=== PATIENT | female | born 1995 | race Asian ===

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

== ENCOUNTER 2017-10-04 22:35 | Emergency (ER) | payer OTHER ==
[~2017-10-04] VITALS: Ht 182.9 cm; Wt 145.2 kg
== END 2017-10-04 23:17 | disposition home or self-care (01) ==
LOC: ED 22:35
DX: K12.1 Other forms of stomatitis (principal)
CPT/HCPCS: 99281

== ENCOUNTER 2018-02-08 14:02 | Emergency (ER) | payer OTHER ==
[~2018-02-08] VITALS: Ht 172.7 cm; Wt 124.7 kg
[2018-02-08 14:10] VITALS: BP 149/93; TEMP 97.3
== END 2018-02-08 15:00 | disposition home or self-care (01) ==
LOC: ED 14:02
DX: N39.0 Urinary tract infection, site not specified (principal)
CPT/HCPCS: 81000; 81025; 87086; 87088; 99282

== ENCOUNTER 2018-04-12 12:50 | Emergency (ER) | payer OTHER ==
[~2018-04-12] VITALS: Ht 170.2 cm; Wt 145.2 kg
[2018-04-12 12:56] VITALS: BP 138/90; TEMP 97.9
== END 2018-04-12 14:22 | disposition home or self-care (01) ==
LOC: ED 12:50
DX: N39.0 Urinary tract infection, site not specified (principal)
CPT/HCPCS: 81000; 99282

== ENCOUNTER 2018-05-04 00:48 | Emergency (ER) | payer OTHER ==
[~2018-05-04] VITALS: Ht 170.2 cm; Wt 145.2 kg
[2018-05-04 01:37] LABS: PLATELET COUNT 297 K/uL (152-353)
[2018-05-04 01:53] LABS: POTASSIUM 3.9 mmol/L (3.6-5.2)
[2018-05-04 03:21] VITALS: BP 120/72; TEMP 98.7
== END 2018-05-04 03:21 | disposition home or self-care (01) ==
LOC: ED 00:48
PROVIDERS: Family Medicine
DX: R10.9 Unspecified abdominal pain (principal); S39.011A Strain of muscle, fascia and tendon of abdomen, initial encounter
CPT/HCPCS: 74022; 80053; 81025; 82150; 83690; 85027; 96372; 99283; J1885

== ENCOUNTER 2020-05-12 17:46 | Emergency (ER) | payer OTHER ==
[~2020-05-12] VITALS: Ht 170.2 cm; Wt 127.0 kg
[2020-05-12 22:15] LABS: PLATELET COUNT 241 K/uL (152-353)
[2020-05-12 22:23] LABS: POTASSIUM 3.5 mmol/L (3.6-5.2)
[2020-05-12 23:49] VITALS: BP 140/57; TEMP 97
== END 2020-05-12 23:50 | disposition home or self-care (01) ==
LOC: ED 17:46
PROVIDERS: Family Medicine
DX: U07.1 COVID-19 (principal); R05 Cough
CPT/HCPCS: 36415; 80053; 85007; 85027; 87502; 87635; 87651; 99283; U0003

== ENCOUNTER 2021-02-14 22:32 | Emergency (ER) | payer BC ==
[~2021-02-14] VITALS: Ht 180.3 cm; Wt 163.3 kg
[2021-02-15 00:03] VITALS: BP 143/94; TEMP 98.1
== END 2021-02-15 00:03 | disposition home or self-care (01) ==
LOC: ED 22:32
DX: S16.1XXA Strain of muscle, fascia and tendon at neck level, initial encounter (principal); S39.012A Strain of muscle, fascia and tendon of lower back, initial encounter; V49.40XA Driver injured in collision with unspecified motor vehicles in traffic accident, initial encounter; Y92.89 Other specified places as the place of occurrence of the external cause
CPT/HCPCS: 81025; 96372; 99283; J1885

== ENCOUNTER 2021-03-13 09:03 | Emergency (ER) | payer BC ==
[~2021-03-13] VITALS: Ht 182.9 cm; Wt 122.5 kg
[2021-03-13 10:07] VITALS: BP 135/80; TEMP 98
== END 2021-03-13 10:13 | disposition home or self-care (01) ==
LOC: ED 09:03
DX: J06.9 Acute upper respiratory infection, unspecified (principal); J02.9 Acute pharyngitis, unspecified; F17.210 Nicotine dependence, cigarettes, uncomplicated; Z20.822 Contact with and (suspected) exposure to COVID-19
CPT/HCPCS: 87635; 87651; 96372; 99283; J0696; U0003

== ENCOUNTER 2021-11-06 14:56 | Emergency (ER) | payer BC ==
[~2021-11-06] VITALS: Ht 182.9 cm; Wt 122.5 kg
[2021-11-06 15:09] VITALS: TEMP 97.9
[2021-11-06 17:15] LABS: PLATELET COUNT 222 K/uL (152-353)
[2021-11-06] MEDS ORDERED: LEVOFLOXACIN500 MG PO (22:11)
[2021-11-06 22:27] VITALS: BP 127/63
== END 2021-11-06 22:27 | disposition home or self-care (01) ==
LOC: ED 14:56
PROVIDERS: Emergency Medicine
DX: N39.0 Urinary tract infection, site not specified (principal)
CPT/HCPCS: 80053; 81002; 81015; 81025; 83690; 85027; 87077; 87086; 87088; 87186; 96360; 96374; 96375; 99283; J1885; J2405; Q9963

== ENCOUNTER 2022-01-30 14:57 | Emergency (ER) | payer OTHER ==
[~2022-01-30] VITALS: Ht 177.8 cm; Wt 151.0 kg
[~2022-01-30 14:57] MED LIST: LEVOFLOXACIN500 MG PO
[2022-01-30 15:02] VITALS: TEMP 98.4
[2022-01-30 15:53] LABS: PLATELET COUNT 184 K/uL (152-353)
[2022-01-30 15:58] LABS: POTASSIUM 3.3 mmol/L (3.6-5.2)
[2022-01-30 18:09] VITALS: BP 135/72
== END 2022-01-30 18:10 | disposition home or self-care (01) ==
LOC: ED 14:57
PROVIDERS: Emergency Medicine Emergency Medical Services
DX: E86.0 Dehydration (principal); R11.2 Nausea with vomiting, unspecified; Z98.84 Bariatric surgery status
CPT/HCPCS: 80053; 81000; 81025; 82150; 83690; 85027; 96360; 96361; 96374; 99284; J2405; J3490

== ENCOUNTER 2022-02-12 08:57 | Emergency (ER) | payer OTHER ==
[~2022-02-12] VITALS: Ht 177.8 cm; Wt 147.4 kg
[2022-02-12 09:09] VITALS: TEMP 97
[2022-02-12 09:56] LABS: PLATELET COUNT 175 K/uL (152-353)
[2022-02-12 10:03] LABS: POTASSIUM 3.6 mmol/L (3.6-5.2)
[2022-02-12 12:30] VITALS: BP 122/82
[2022-02-12] MEDS ORDERED: ONDA4TAB3 PO (12:40)
[2022-02-12] MEDS ORDERED: CIPRO500 MG PO (12:40)
== END 2022-02-12 12:49 | disposition home or self-care (01) ==
LOC: ED 08:57
PROVIDERS: Emergency Medicine
DX: R11.2 Nausea with vomiting, unspecified (principal); Z98.84 Bariatric surgery status; N39.0 Urinary tract infection, site not specified; A59.00 Urogenital trichomoniasis, unspecified
CPT/HCPCS: 80053; 81000; 81025; 82150; 83690; 85027; 87086; 87088; 99283

== ENCOUNTER 2022-02-22 11:03 | Emergency (ER) | payer OTHER ==
[~2022-02-22] VITALS: Ht 180.3 cm; Wt 143.8 kg
[~2022-02-22 11:03] MED LIST changes: +CIPRO500 MG PO; +ONDA4TAB3 PO
[2022-02-22 11:56] LABS: PLATELET COUNT 220 K/uL (152-353)
[2022-02-22 14:00] VITALS: BP 134/71; TEMP 98.4
== END 2022-02-22 14:00 | disposition home or self-care (01) ==
LOC: ED 11:03
PROVIDERS: Emergency Medicine
DX: E86.0 Dehydration (principal); E87.6 Hypokalemia; Z98.84 Bariatric surgery status
CPT/HCPCS: 36415; 80053; 85027; 93005; 96360; 99284

== ENCOUNTER 2022-03-03 22:13 | Emergency (ER) | payer OTHER ==
[~2022-03-03] VITALS: Ht 180.3 cm; Wt 138.8 kg
[2022-03-03 22:53] LABS: PLATELET COUNT 274 K/uL (152-353)
[2022-03-03 23:16] LABS: POTASSIUM 3.2 mmol/L (3.6-5.2)
[2022-03-04 01:29] VITALS: BP 134/98; TEMP 98.3
== END 2022-03-04 01:29 | disposition home or self-care (01) ==
LOC: ED 22:13
PROVIDERS: Family Medicine
DX: E86.0 Dehydration (principal); R42 Dizziness and giddiness; E66.01 Morbid (severe) obesity due to excess calories; E87.6 Hypokalemia; Z98.84 Bariatric surgery status
CPT/HCPCS: 36415; 80053; 81000; 85027; 96360; 96361; 99284

== ENCOUNTER 2022-03-10 11:20 | Observation (INO) | payer OTHER ==
[~2022-03-10] VITALS: Ht 180.3 cm; Wt 141.6 kg
[2022-03-10] VITALS (14 sets, daily range): BP systolic 133–209; BP diastolic 87–140; TEMP 97.6–99.5; Ht 180.3 cm; Wt 141.6 kg
[2022-03-10 12:04] LABS: PLATELET COUNT 282 K/uL (152-353)
[2022-03-10 12:14] LABS: POTASSIUM 3.6 mmol/L (3.6-5.2)
[2022-03-10] MEDS ORDERED: ONDA4TAB3 PO (19:42)
[2022-03-10] MEDS ORDERED: POTASSIUM CHLO10 MEQ PO (19:42)
[2022-03-11] VITALS (9 sets, daily range): BP systolic 149–177; BP diastolic 70–117; TEMP 98.4–99.3
[2022-03-11 05:11] LABS: PLATELET COUNT 206 K/uL (152-353)
[2022-03-11 05:32] LABS: POTASSIUM 3.9 mmol/L (3.6-5.2)
[2022-03-12 04:00] VITALS: BP 147/96; TEMP 98.9
[2022-03-12 08:00] VITALS: BP 146/88; TEMP 98.5
[2022-03-12 10:21] LABS: POTASSIUM 3.6 mmol/L (3.6-5.2)
[2022-03-12 12:00] VITALS: BP 149/95; TEMP 98.6
[2022-03-12] MEDS ORDERED: [UNRECOGNIZED DRUG - OTHER] OTIC (13:12)
[2022-03-12] MEDS ORDERED: LISI10TA11 PO (13:13)
[2022-03-12] MEDS ORDERED: METO50TA27 PO (13:14)
[2022-03-12] MEDS ORDERED: LISI20TA11 PO (13:19)
[2022-03-12 16:00] VITALS: BP 149/95; TEMP 98.6
== END 2022-03-12 16:35 | disposition home or self-care (01) ==
LOC: ED 11:20 → MED/SURG 17:15
PROVIDERS: ADMIT Emergency Medicine; ATTEND Internal Medicine
DX: I16.0 Hypertensive urgency (principal); E86.0 Dehydration; R41.82 Altered mental status, unspecified; A59.01 Trichomonal vulvovaginitis; R33.8 Other retention of urine; Z98.84 Bariatric surgery status; H61.23 Impacted cerumen, bilateral; E66.01 Morbid (severe) obesity due to excess calories; Z68.41 Body mass index [BMI] 40.0-44.9, adult
CPT/HCPCS: 36415; 80048; 80053; 80307; 80320; 81000; 81025; 82140; 82607; 82948; 84439; 84443; 84484; 85027; 85610; 85730; 87502; 87635; 93005; 96360; 96361; 96366; 96374; 96375; 96376; 99220; 99284; A9576; G0378; J1650; J3490; U0003